=== PATIENT | female | born 1955 | race Caucasian/White ===

== ENCOUNTER 2017-01-17 18:23 | Emergency (ER) | payer BC ==
[2017-01-17] MEDS ORDERED: Acetaminophen 500 MG TAB ONE (19:40)
--- NOTE | 2017-01-17 22:54 | CT ---
CT OF THE BRAIN WITHOUT CONTRAST 01/17/[address] was done following trauma. The ventricles are normal in size and show no shift. No intracranial bleeding, extra-axial hematoma, mass or sign of stroke was found. No focal parenchymal abnormalities of great concern were seen. Th e calvarium appears intact. The sphenoid sinus and mastoid air cells are clear. IMPRESSION: No acute intracranial findings. POS: HOME
== END 2017-01-17 20:55 | disposition home or self-care (01) ==
LOC: BURERS 18:23
DX: S01.81XA Laceration without foreign body of other part of head, initial encounter (principal); S06.0X0A Concussion without loss of consciousness, initial encounter; S80.01XA Contusion of right knee, initial encounter; Z79.899 Other long term (current) drug therapy; W19.XXXA Unspecified fall, initial encounter
CPT/HCPCS: 12013; 70450

== ENCOUNTER 2018-02-05 18:15 | Emergency (ER) | payer BC ==
[2018-02-05] MEDS ORDERED: AMOXicillin 250 MG CAP ONE (18:28)
== END 2018-02-05 18:35 | disposition home or self-care (01) ==
LOC: BURERS 18:15
DX: J20.9 Acute bronchitis, unspecified (principal); M19.90 Unspecified osteoarthritis, unspecified site; Z86.73 Personal history of transient ischemic attack (TIA), and cerebral infarction without residual deficits
CPT/HCPCS: 99283

== ENCOUNTER 2018-02-12 11:27 | Emergency (ER) | payer BC | END 2018-02-12 11:50 | disposition home or self-care (01) | LOC: BURERS 11:27 | DX: J40 Bronchitis, not specified as acute or chronic (principal) | CPT/HCPCS: 99282 ==

== ENCOUNTER 2019-03-25 09:44 | Emergency (ER) | payer BC ==
[2019-03-25] MEDS ORDERED: Bacitracin Zinc 1 Packet ONE (10:37)
== END 2019-03-25 10:46 | disposition home or self-care (01) ==
LOC: BURERS 09:44
DX: S61.551A Open bite of right wrist, initial encounter (principal); E03.9 Hypothyroidism, unspecified; Z86.73 Personal history of transient ischemic attack (TIA), and cerebral infarction without residual deficits; Z79.899 Other long term (current) drug therapy; Z79.82 Long term (current) use of aspirin; W54.0XXA Bitten by dog, initial encounter
CPT/HCPCS: 12015

== ENCOUNTER 2023-07-14 10:10 | Emergency (ER) | payer MEDICARE, BC ==
[2023-07-14] MEDS ORDERED: Lidocaine 2% w/Epinephrine 1:200K 20 ML VIAL ONE (11:56)
[2023-07-14] MEDS ORDERED: Bacitracin 1 PK ONE (12:25)
== END 2023-07-14 12:34 | disposition home or self-care (01) ==
LOC: BURERS 10:10
DX: S01.01XA Laceration without foreign body of scalp, initial encounter (principal); E03.9 Hypothyroidism, unspecified; W19.XXXA Unspecified fall, initial encounter
CPT/HCPCS: 12013; 70450; 72125